=== PATIENT | female | born 1985 | race Two or more races ===

== ENCOUNTER 2025-01-19 05:35 | Day surgery (SDC) | payer OTHER, SELFPAY ==
[2025-01-18 10:27] VITALS: BMI 34.3
[2025-01-18 11:14] LABS: Basophils % (Auto) 1 % (0-2.5); Eosinophils # (Auto) 0.1 Thou/mm3 (0.0-0.5); Eosinophils % (Auto) 1 % (0-10); Hemoglobin 12.9 g/dL (12.0-16.0); Immature Granulocytes % (Auto) 0 % (0-0); Immature Granulocytes Auto 0.01 Thou/mm3 (0.00-0.00); Lymphocytes # (Auto) 1.9 Thou/mm3 (1.0-4.8); Lymphocytes % (Auto) 30 % (10-50); Mean Corpuscular HGB Conc 33.9 g/dl (31.0-37.0); Mean Corpuscular Volume 88 fL (80-100); Monocytes # (Auto) 0.6 Thou/mm3 (0.0-0.8); Monocytes % (Auto) 10 % (0-12); Neutrophils # (Auto) 3.6 Thou/mm3 (1.8-7.7); Neutrophils % (Auto) 58 % (37-80); Nucleated Red Blood Cell % 0 /100 WBC (0); Platelet Count 250 Thou/mm3 (140-440); RDW Standard Deviation 38.5 fL (36.4-46.3); White Blood Count 6.2 Thou/mm3 (3.6-11.0)
[2025-01-18 11:26] LABS: HCG,Qualitative Serum Negative
[2025-01-18 11:56] LABS: HIV (1&2) Antibody Rapid Non-Reactive
[2025-01-18 12:13] LABS: Hepatitis A Antibody IgM Non Reactive (Non React); Hepatitis B Core Antibody IgM Non Reactive (Non React); Hepatitis B Surface Antigen Non Reactive (Non React); Hepatitis C Antibody Non Reactive (Non React)
[2025-01-19] VITALS (7 sets, daily range): BP systolic 112–127; BP diastolic 70–80; PULSE 55–79; RESP 13–19; TEMP 36.6–36.9; O2SAT 99–100; BMI 34.2
[2025-01-19] MEDS: RINGERS LACTATED 1000 ML 1,000 ML 20 ML IV (06:33)
--- NOTE | 2025-01-19 08:48 | SUR.PHASEI ---
0895 Patient arrived to recovery resting comfortably [facility], awake and talking with staff, breathing unlabored, vital signs stable, denies pain, dressing intact to abdomen; dermabond, no bleeding noted, denies nausea, report received from Dr. Radford and Michael IBARRA
--- NOTE | 2025-01-19 09:30 | SUR.PHASEII ---
0930 Patient meets discharge instructions, awake and alert, breathing unlabored, vital sign stable, denies pain, dressing intact; no bleeding noted, eating ice chips; denies nausea. Discharge instructions given to patient and patients daughter with the assistance of the telephone kier hand Eliseo ID#[id number], patient daughter signed discharge instructions. Patient disconnected from vital signs monitor, dressed in her clothing and daughter stated, Ok, I will call my dad to come pick us up, we live in [place] and he's at home, it will take him an hour to get here , patient to await in PACU for her ride
--- NOTE | 2025-01-19 10:35 | SUR.PHASEII ---
1035 Patient ride arrived, IV disconnected, patient given all her belongings prior to discharge, transported via wheelchair and left in a private vehicle.
--- NOTE | 2025-01-31 13:11 | PD.GYNPROC ---
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 General anesthesia was given without any complications.? A time out was given confirming Antonia Polanco was undergoing the following, procedure,allergies, and surgeon.The patient was positioned in the dorsal lithotomy position. The bladder was emptied. The perineum was prepped with Betadine solution per routine.The abdomen was prepped with DuraPrep. Attention was then focused to the vagina.? A sponge placed in a ring forceps was placed in the posterior fornix and used as a uterine manipulator.? The surgeon then changed gloves to continue proper sterile technique. Attention was diverted to the abdomen. An umblical incision was first made, Two towel clips were placed lateral to the umbilicus in order to elevate the abdominal wall.? A hemostat was used to assess the depth to the fascia. While applying countertraction by lifting the towel clips, a Veress needle was used to enter the peritoneal cavity, a initial abdominal pressure of 2 mmHg was noted upon entry. Veress needle used for initial pneumoperitoneum establishment. 5 mm port used for the direct trocar entry the abdomen was then insufflated with CO2 gas to 15mmHg, under the opti-view system was advanced into the peritoneal entry.? The Right lower quadrant was evaluated and a 5-mm incision was made . 5-mm trocar placed under camera surveillance.? Left side evaluated and a 5mm trocar inserted under optiview surveillance. Bilateral salpingectomy completed using enseal device and specimen sent for pathologic review. Hemostasis mantained. Estimated blood loss (ml): 5 Surgical staff Operation Date: 01/19/25 07:30 Case Staff Anesthesiologist: Gnozalo Radford RNsupervisor tunnel heading: Dawna Mancilla Diagnosis Problem List Completed Was Problem List Reviewed/Reconciled?: Yes
== END 2025-01-19 10:35 | disposition home or self-care (01) ==
PROVIDERS: PCP Family Medicine; Referring Provider Student in an Organized Health Care Education/Training Program; Visit Provider Student in an Organized Health Care Education/Training Program
PROC: (CPT 58720; principal; 2025-01-19 07:30)
DX: Z30.2 Encounter for sterilization (principal)
CPT/HCPCS: 58661; 36415; 80074; 84703; 85025; 86703; 86850; 86900; 86901; A4217; A4649; J0131; J0330; J1100; J2371; J2704; J2765; J3010; J3490; J7120; A9270